=== PATIENT | female | born 1965 | race Two or more races ===

== ENCOUNTER 2024-07-13 08:30 | Emergency (ER) | payer OTHER ==
[2024-07-13 08:36] VITALS: BP 166/96; PULSE 70; RESP 16; TEMP 97.3; BMI 28.3
[2024-07-13] MEDS ORDERED: LIDOCAINE 5% TOPICAL PATCH ONE (08:51)
[2024-07-13] MEDS ORDERED: IBUPROFEN 400 MG TABLET (FP) PO ONE (08:53)
[2024-07-13] MEDS: IBUPROFEN 400 MG TABLET (FP) PO ONE (09:01)
[2024-07-13] MEDS: LIDOCAINE 5% TOPICAL PATCH TP ONE (09:01)
[2024-07-13] MEDS ORDERED: LIDOCAINE PATCH REMOVAL MC SCH (22:00)
== END 2024-07-13 09:44 | disposition home or self-care (01) ==
LOC: JERFT 08:30
DX: M54.50 Low back pain, unspecified (principal)
CPT/HCPCS: 99283-25